=== PATIENT | male | born 1950 | race Caucasian/White ===

== ENCOUNTER 2017-06-20 09:00 | Emergency (ER) | payer MEDICARE ==
[~2017-06-20] VITALS: Ht 190.5 cm; Wt 140.6 kg
[~2017-06-20 09:00] MED LIST: CELLCEPT500 MG PO; CITALOPRAM40 MG PO; COLCRYS0.6 MG GT; COUMADIN5 MG PO; DILTIAZEM ER 3300 MG PO; FAMOTIDINE20 MG PO; KEFLEX500 M1 PO; LEVOFLOXACIN 7750 M1 PO; LISINOPRIL/HCTZ1 TA3 PO; MULTIVITAMIN1 TA1 PO; PRAVASTATIN SOD80 M1 PO; PREDNISONE PO; PREDNISONE1 MG PO; PROAIR HFA0.09 MG/AC IH; RAPAMUNE1 MG PO
--- OUTSIDE RECORDS SUMMARY | 2017-06-20 09:10 | External Medical Summary Rpt | CCD ---
Author Author RONEN Address Unknown Phone [email or web address] Purpose Continuity of Care Document - through 2016
--- OUTSIDE RECORDS SUMMARY | 2017-06-20 09:10 | External Medical Summary Rpt | CCD ---
Author Author [employer] Organization [employer] Address Unknown Phone Unavailable Purpose Continuity of Care Document - through 2016
--- OUTSIDE RECORDS SUMMARY | 2017-06-20 09:10 | External Medical Summary Rpt | CCD ---
Author Author RONEN Address Unknown Phone [email or web address] Purpose Continuity of Care Document - through 2016
--- OUTSIDE RECORDS SUMMARY | 2017-06-20 09:11 | External Medical Summary Rpt | CCD ---
Demographics Preferred Language Arabic Marital Status Unknown Protestant Affiliation Unknown Race Unknown Ethnic Group Unknown Author Author , RONEN Organization RONEN Address Unknown Phone Immunization Unable to retrieve immunization data due to connection failure with Immunization Registry. Please try again later.
--- OUTSIDE RECORDS SUMMARY | 2017-06-20 09:11 | External Medical Summary Rpt ---
Author Author RONEN Ward, RONEN Ward Organization [employer] Address Unknown Phone Unavailable
--- OUTSIDE RECORDS SUMMARY | 2017-06-20 09:11 | External Medical Summary Rpt | CCD ---
Demographics Preferred Language Chinese Marital Status Unknown Spiritism Affiliation Unknown Race Unknown Ethnic Group Unknown Author Author , RONEN Organization RONEN Address Unknown Phone Immunization Unable to retrieve immunization data due to connection failure with Immunization Registry. Please try again later.
[2017-06-20] MEDS ORDERED: POLYTRIM 10ML O10 ML OP (09:28)
--- NOTE | 2017-06-20 09:28 | Urgent Treatment Center Report ---
History of Present Issue Date/Time Seen by Provider 06/20/17 0910 Visit Reason Pt arrived:Walked Presenting Problem:EYES RED, R EAR PAIN BEGAN YESTERDAY Location if Accident: Onset of symptoms date/time:/ or onset unknown for:MEDICAL HX UNKNOWN Have you (or family members/close friends) recently traveled outside the [place]? N If Yes, where/when: Have you had exposure to infectious disease within the past month? TB? Other? Specify: c/o "I am pretty sure the pink eye". Started yesterday evening after a short nap w/ ras eyes feeling irritated "and filmy". Went to restroom and noticed both bright red "with mucous in them". Slight improvement with artificial tears and wiping eyes. Woke this morning w/ both red again but this time eyelids crusted. Noticed a scratchy throat at bedtime that was worse throughout night and now scratchy again this morning. Right ear pressure and "slight runny nose" as well. Hasn't taken or tried anything else for symptoms. No known sick contacts. Denies fever, aches, chills, change vision, eye pain, eye swelling, cough. Source patient Exam Limitations no limitations ALLERGIES Coded Allergies: allopurinol (06/20/17) Home Medications Active Scripts Warfarin Sodium (Coumadin) 5 MG PO DAILY #30 TAB Ref 5 Prov: 05/22/14 Prednisone (Prednisone 1MG) 10 MG PO DAILY #30 TAB Prov: 01/03/16 Famotidine 20 MG PO QHS #30 TAB Prov: 01/03/16 Levofloxacin (Levofloxacin 750MG) 750 MG PO Q48H #7 TABLET Prov: 01/03/16 Albuterol Sulfate (Proair Hfa) 2 PUFF IH Q6HP PRN ASTHMA #1 INH Ref 2 Prov: 01/03/16 Reported Medications Lisinopril & Hctz (Lisinopril-Hctz 10-12.5 MG Tab) 1 TAB PO DAILY Pravastatin Sodium 80 MG PO QHS Mycophenolate Mofetil (Cellcept) 500 MG PO BID Sirolimus (Rapamune) 1 MG PO Q THIRD DAY DILTIAZEM HCL (Diltiazem 24HR Cd) 300 MG PO DAILY Multiple Vitamin (Multivitamin) 1 TAB PO DAILY Colchicine (Colcrys) 0.6 MG GT DAILY CITALOPRAM HYDROBROMIDE (Citalopram HBr) 40 MG PO DAILY History Medical History General Angina: No [place]: No Hypertension? Yes Hyperlipidemia? Yes CHF? No COPD? No Asthma? No Hernia? No CVA? No Seizures? No Diabetes? No UTI? No Stones? No GB Disease: No Nephritic Syndrome? No Asplenia? No Hepatitis? No Sickle Cell Disease? No Cataracts? No Glaucoma? No MRSA? No TB? No Cancer? Yes Site: COLON, SKIN More? 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 denies: ear discharge. Respiratory see HPI Cardiovascular denies chest pain Gastrointestinal denies no symptoms reported Musculoskeletal denies joint pain Skin denies rash Psychiatric/Neurological denies headache Physical Exam Vital Signs Vital Signs Date Time Temp Pulse Resp B/P Pulse O2 O2 Flow FiO2 Ox Delivery Rate 06/20 0935 98.1 78 20 117/77 96 06/20 0916 98.1 78 20 117/77 96 General Appearance normal appearance, no apparent distress, very nice gentlemen Eye Exam - bilateral eye other Comment ras sclera and conjunctivae injected w/o swelling, evidence of green crusting ars lower lashes, thick purulent drainage ras inner canthus, PERRLA, EOMs intact , nontender, no swelling, no photophobia Ear, Nose, Throat normal ENT inspection (x/ mild nasal congestion, PND) Neck non-tender, supple Respiratory Status No: respiratory distress, productive cough, non productive cough. Lung Sounds anterior: lungs clear. posterior: lungs clear. bilateral: lungs clear. Cardiovascular regular rate/rhythm, no peripheral edema, no murmur Neurologic alert, oriented x 3 Mental status normal mood/affect (very polite) Skin normal color, warm/dry Lymphatic no adenopathy (head/neck) Medical Decision Making LABS/Meds/Orders Pt receiving controlled substance in ED? No Progress [facility] Progress Notes Date 06/20/17 Comment Discussed likely adenovirus. Pt very concerned about not getting antibiotics today. Aware that antibiotics do not make viruses any better and can increase risk for resistance. pt prefers to have antibiotics today for eyes but willing to try conservative measures first for upper resp virus symptoms Departure Departure Time of Disposition 920 Disposition DC Home or Self Care(routine) Clinical Impression Primary Impression: Conjunctivitis Qualifiers: Conjunctivitis type: acute Acute conjunctivitis type: unspecified Laterality: bilateral Qualified Code: H10.33 - Unspecified acute conjunctivitis, bilateral Secondary Impressions: Upper respiratory virus Condition STABLE Referrals Sedrick REYES,Robson Narvaez (PCP/Family) Immediately for new or worsening symptoms. Follow up if no noticeable improvement over the next 72 hours. Patient Instructions DI for Conjunctivitis, DI for Viral Upper Respiratory Infection -- Adult Additional Instructions * I suspect this is likely the adenovirus, a virus that causes your symptoms. I understand the concern for "pink eye" and will prescribe you antibiotic drops for that reason. Start antibiotic drops SHANEL and use them as ordered at least 48 hours after symptoms resolve. If this is viral, you will not see an improvement with drops. * Warm compresses * conjunctivitis (pink eye) is contagious and spreads easily. Try to avoid touching the eye and if so, wash hands immediately. Frequently disinfecting surfaces the patient touches will help decrease the spread of conjunctivitis. * If this is bacterial, you should notice improvement typically within 24 hours but at least within 48 hours after starting antibiotic. If not, you need to follow up with your family doctor or better yet, an eye care provider. * No sign of bacterial infection. Likely viral. Virus can take 7-14 days to run their course * Monitor Temp. FU if fever develops * Encourage fluids, water, gatorade, powerade, pedialyte if /toddler/child * warm salt water gargles * warm fluids * sore throat lozenges * sleep elevated * humidifier/vaporizer Discharge Counseling Counseled pt/family regarding diagnosis, test results, medications/RX, home care, follow up needs Prescriptions Current Visit Scripts Trimethoprim-Polymyxin B (Polytrim Eye Drops) 2 DRP OP Q6 #1 BOT every 6 hours x 7 days at 0948
[2017-06-20 09:35] VITALS: BP 117/77
== END 2017-06-20 09:36 | disposition home or self-care (01) ==
LOC: UTC 09:00
DX: H10.33 Unspecified acute conjunctivitis, bilateral (principal); J06.9 Acute upper respiratory infection, unspecified; I10 Essential (primary) hypertension; E78.5 Hyperlipidemia, unspecified; Z79.01 Long term (current) use of anticoagulants